=== PATIENT | male | born 1980 | race Caucasian/White ===

== ENCOUNTER 2024-01-28 13:49 | Observation (INO) | payer OTHER ==
[2024-01-28 15:59] LABS: Glucose,Whole Blood 134 mg/dL (70-110)
[2024-01-28 16:02] LABS: Basophils % (A) 0 %; Eosinophils # (A) 0.1 k/uL (0-0.7); Eosinophils % (A) 1 %; HCT 36.3 % (39.0-53.0); HGB 12.6 gm/dL (13.0-17.5); Lymphocytes # (A) 1.9 k/uL (1.0-4.8); Lymphocytes % (A) 16 %; MCH 29.2 pg (25.0-35.0); MCHC 34.6 g/dL (31.0-37.0); MCV 84.4 fL (80.0-100.0); Mean Platelet Volume 7.6; Monocytes # (A) 0.9 k/uL (0-1.0); Monocytes % (A) 7 %; Neutrophils # (A) 9.1 k/uL (1.3-7.7); Neutrophils % (A) 75 %; Platelet Count 277 k/uL (150-450); RBC 4.29 m/uL (4.30-5.90); RDW 14.8 % (11.5-15.5); WBC 12.2 k/uL (3.8-10.6)
[2024-01-28 16:19] LABS: ALT 30 U/L (4-49); AST 54 U/L (17-59); African American GFR (CKD) 36 (>60 ml/min/1.73 sqM); Albumin 5.2 g/dL (3.5-5.0); Alcohol <10 mg/dL; Alkaline Phosphatase 72 U/L (38-126); Anion Gap 13 mmol/L; Blood Urea Nitrogen 35 mg/dL (9-20); Calcium 10.5 mg/dL (8.4-10.2); Carbon Dioxide 23 mmol/L (22-30); Chloride 102 mmol/L (98-107); Glucose 100 mg/dL (74-99); Non-African American GFR(CKD) 31 (>60 ml/min/1.73 sqM); Potassium 4.5 mmol/L (3.5-5.1); Sodium 138 mmol/L (137-145); Total Bilirubin 0.6 mg/dL (0.2-1.3); Total Protein 8.8 g/dL (6.3-8.2)
[2024-01-28] MEDS: NALOXONE 0.4 MG/ML 1 ML VIAL IVP STA (17:08)
--- NOTE | 2024-01-28 17:41 | CT ---
EXAMINATION TYPE: CT brain cspine wo con CT DLP: 1930..5 mGycm, Automated exposure control for dose reduction was used. DATE OF EXAM: 01/28/2024 5:24 PM COMPARISON: None. CLINICAL INDICATION: Male, 43 years old with history of fall; Denies fall, has abrasions to knees and elbows. TECHNIQUE: Brain: Multiple axial CT images of the brain were obtained without IV contrast. Cspine: Axial CT images from the skull base to the inferior aspect of T2 we obtained without intraven ous contrast. Coronal and sagittal reformatted images were also reviewed. . FINDINGS: Brain: Extra-axial spaces: No abnormal extra-axial fluid collections. Ventricular system: Within normal limits Cerebral parenchyma: No acute intraparenchymal hemorrhage or mass effect. The cottrell-white junction is well differentiated. Cerebellum: Unremarkable. Mass effect: No evidence of midline shift. Intracranial vasculature: unremarkable Soft tissues: Normal. Calvarium/osseous structures: No depressed skull fracture. Paranasal sinuses and mastoid air cells: Clear. Visualized orbits: Orbital contents are intact. Cervical spine: Fracture: None. Osseous structures: Multilevel degenerative disc disease changes with endplate spurring and disc oste ophyte complex's. Vertebral alignment: Within normal limits. Spinal canal/Neural Foramina: No evidence of significant spinal canal narrowing. No evidence for sign ificant neural foraminal stenosis. Neck soft tissues: Prevertebral soft tissues are within normal limits. Other: The airway is patent. The lung apices are clear. IMPRESSION: 1. No acute intracranial process. 2. No evidence of cervical spine fracture. 3. Mild multilevel degenerative disc disease.
[2024-01-28] MEDS: SODIUM CHLORIDE 0.9% 2,000 ML IV ONE (18:20)
[2024-01-28] MEDS: SODIUM CHLORIDE 0.9% 1,000 ML IV SCH (20:09)
[2024-01-28 20:21] LABS: Glucose,Whole Blood 112 mg/dL (70-110)
[2024-01-28 20:48] LABS: Amphetamine Screen,Urine Detected (NotDetected); Barbiturate Screen,Urine Not Detected (NotDetected); Benzodiazepines Screen,Urine Detected (NotDetected); Cocaine Screen,Urine Detected (NotDetected); Methadone Screen, Urine Not Detected (NotDetected); Opiate Screen,Urine Not Detected (NotDetected); Oxycodone Screen, Urine Not Detected (NotDetected); Phencyclidine Screen,Urine Not Detected (NotDetected); Tricyclic Antidepressant,Urine Detected (NotDetected); Urn Cannabinoid Scrn Detected (NotDetected)
[2024-01-28] MEDS ORDERED: NALOXONE 0.4 MG/ML 1 ML VIAL IV PRN (21:11)
--- NOTE | 2024-01-28 21:13 | ED ---
General Adult HPI - General Chief complaint: Recheck/Abnormal Lab/Rx Stated complaint: syncope Time Seen by Provider: 01/28/24 15:09 Source: patient Mode of arrival: ambulatory Limitations: no limitations - History of Present Illness Initial comments: 43-year-old male presenting after a fall. Patient went into [facility] intake today. He is difficult to arouse. He does report that he took cocaine and methamphetamine before reporting there. EMS states that the patient did fall at the facility and hit his face. He is difficult to obtain much history from him at this time. Arousable to sternal rub. He does have abrasions to the face and extremities. - Related Data Home Medications Medication Instructions Recorded Confirmed Baclofen 5 mg PO DAILY 01/29/24 01/29/24 Buprenorphine-Nalox 8-2 mg Tab 1 tab SUBLINGUAL BID 01/29/24 01/29/24 [Suboxone 8-2 mg Tab] Naproxen [EC-Naprosyn] 500 mg PO BID PRN 01/29/24 01/29/24 Nicotine 14Mg/24Hr Patch [Habitrol 1 patch TRANSDERM DAILY 01/29/24 01/29/24 14Mg/24Hr Patch] Nicotine Polacrilex [Nicotine Gum] 2 mg BUCCAL Q2H PRN 01/29/24 01/29/24 Pregabalin [Lyrica] 200 mg PO DAILY 01/29/24 01/29/24 QUEtiapine FUMARATE [SEROquel] 300 mg PO HS 01/29/24 01/29/24 QUEtiapine [SEROquel] 100 mg PO DAILY 01/29/24 01/29/24 Venlafaxine HCl [Effexor XR] 75 mg PO DAILY 01/29/24 01/29/24 Allergies Allergy/AdvReac Type Severity Reaction Status Date / Time No Known Allergies Allergy Verified 01/29/24 13:00 Review of Systems ROS Statement: Those systems with pertinent positive or pertinent negative responses have been documented in the HPI. ROS Other: All systems not noted in ROS Statement are negative. Past Medical History Past Medical History: No Reported History History of Any Multi-Drug Resistant Organisms: Unobtainable Past Surgical History: No Surgical Hx Reported Past Psychological History: No Psychological Hx Reported Smoking Status: Unknown if ever smoked Past Alcohol Use History: Unable to Obtain Past Drug Use History: Unable to Obtain - Past Family History Mother Family Medical History: No Reported History General Exam Limitations: no limitations General appearance: appears intoxicated, obtunded Head exam: Present: normocephalic Expanded Head exam: Present: abrasion Eye exam: Present: normal appearance, PERRL, EOMI Neck exam: Present: normal inspection. Absent: meningismus Respiratory exam: Present: normal lung sounds bilaterally. Absent: respiratory distress, wheezes, rales, rhonchi, stridor Cardiovascular Exam: Present: regular rate, normal rhythm, normal heart sounds. Absent: systolic murmur, diastolic murmur, rubs, gallop, clicks Neurological exam: Present: altered Skin exam: Present: abrasion Course Vital Signs 01/28/24 01/28/24 01/28/24 14:14 16:00 17:00 Temperature 98 F 98 F Pulse Rate 98 77 75 Pulse Rate [ Pulse Oximetery ] Respiratory 18 12 12 Rate Blood Pressure 116/83 113/80 131/87 Blood Pressure [Right Arm] O2 Sat by Pulse 93 L 98 99 Oximetry 01/28/24 01/28/24 01/28/24 17:08 18:00 20:14 Temperature 97.6 F Pulse Rate 76 81 Pulse Rate [ Pulse Oximetery ] Respiratory 10 L 14 18 Rate Blood Pressure 134/87 142/98 Blood Pressure [Right Arm] O2 Sat by Pulse 96 97 Oximetry 01/29/24 01/29/24 01/29/24 00:20 04:52 07:00 Temperature 97.7 F 97.8 F Pulse Rate 82 88 Pulse Rate [ 75 Pulse Oximetery ] Respiratory 18 16 18 Rate Blood Pressure 134/89 128/97 Blood Pressure 136/96 [Right Arm] O2 Sat by Pulse 97 95 97 Oximetry Medical Decision Making - Medical Decision Making Was pt. sent in by a medical professional or institution (, PA, TUNNEL HEADING INSPECTOR, urgent care, hospital, or [facility]...) When possible be specific @ -No Did you speak to anyone other than the patient for history (EMS, parent, family, police, friend...)? What history was obtained from this source @ -No Did you review nursing and triage notes (agree or disagree)? Why? @ -I reviewed and agree with nursing and triage notes Were old charts reviewed (outside hosp., previous admission, EMS record, old EKG, old radiological studies, urgent care reports/EKG's, [facility] records)? Report findings @ -No old charts were reviewed Differential Diagnosis (chest pain, altered mental status, abdominal pain women, abdominal pain men, vaginal bleeding, weakness, fever, dyspnea, syncope, headache, dizziness, GI bleed, back pain, seizure, CVA, palpatations, mental health, musculoskeletal)? @ -MDM Differential Altered Mental Status: Hypoglycemia, DKA, hypercapnia, ETOH, overdose, CO poisoning, trauma, myxedema coma, HTN encephalopathy, infection, encephalitis, psychosis, intercranial hemorrhage, hepatic encephalopathy, meningitis, CVA this is not meant to be an all-inclusive list EKG interpreted by me (3pts min.). @ -Sinus rhythm ventricular rate 80. KS interval 162. QRS 94. QT 393. QTc 429. X-rays interpreted by me (1pt min.). @ -None done CT interpreted by me (1pt min.). @ -CT shows no acute intracranial process. No evidence for cervical spine fracture. Mild multilevel degenerative disc disease U/S interpreted by me (1pt. min.). @ -None done What testing was considered but not performed or refused? (CT, X-rays, U/S, labs)? Why? @ -None What meds were considered but not given or refused? Why? @ -None Did you discuss the management of the patient with other professionals (professionals i.e. , PA, TUNNEL HEADING INSPECTOR, lab, RT, psych nurse, social science research assistant, wicker molded candles, teacher, marine safety officer, patient case coordinator)? Give summary @ -I spoke with Dr. Duval who accepted admission Was smoking cessation discussed for >3mins.? @ -No Was critical care preformed (if so, how long)? @ -No Were there social determinants of health that impacted care today? How? (Homelessness, low income, unemployed, alcoholism, drug addiction, transportation, low edu. Level, literacy, decrease access to med. care, correction, rehab)? @ -Polysubstance use Was there de-escalation of care discussed even if they declined (Discuss DNR or withdrawal of care, Hospice)? DNR status @ -No What co-morbidities impacted this encounter? (DM, HTN, Smoking, COPD, CAD, Cancer, CVA, ARF, Chemo, Hep., AIDS, mental health diagnosis, sleep apnea, morbid obesity)? @ -None Was patient admitted / discharged? Hospital course, mention meds given and route, prescriptions, significant lab abnormalities, going to OR and other pertinent info. @ -43-year-old male presenting after a fall. The patient is altered. Admits to using cocaine and methamphetamine prior to arrival. Was at intake at [facility] and brought here. Patient initially required sternal rub to arouse. He was placed on 3 L of oxygen via nasal cannula. Given Narcan 0.[address] of the brain and cervical spine. Creatinine 2.44 BUN 35, no previous values for comparison. Creatinine kinase 1358. Ammonia less than 9 alcohol level less than 10. He is positive for TCAs, amphetamines, methamphetamines, benzodiazepines, cocaine, and marijuana. Patient will be admitted for GOLDEN and rhabdomyolysis. He received 2 L normal saline fluid bolus and placed on maintenance rate of 150 mL/h. He is agreeable with this plan. I discussed this case with my attending Dr. Giraldo Undiagnosed new problem with uncertain prognosis? @ -No Drug Therapy requiring intensive monitoring for toxicity (Heparin, Nitro, In sulin, Cardizem)? @ -No Were any procedures done? @ -No Diagnosis/symptom? @ -Rhabdomyolysis, GOLDEN Acute, or Chronic, or Acute on Chronic? @ -Acute Uncomplicated (without systemic symptoms) or Complicated (systemic symptoms)? @ -Complicated Side effects of treatment? @ -No Exacerbation, Progression, or Severe Exacerbation? @ -No Poses a threat to life or bodily function? How? (Chest pain, USA, RI, pneumonia, PE, COPD, DKA, ARF, appy, cholecystitis, CVA, Diverticulitis, Homicidal, Suicidal, threat to staff... and all critical care pts) @ -Yes - Lab Data Result diagrams: 01/28/24 15:50 01/29/24 04:34 Lab Results 01/28/24 01/28/24 01/28/24 Range/Units 15:50 15:50 15:50 WBC 12.2 H (3.8-10.6) k/uL RBC 4.29 L (4.30-5.90) m/uL Hgb 12.6 L (13.0-17.5) gm/dL Hct 36.3 L (39.0-53.0) % MCV 84.4 (80.0-100.0) fL MCH 29.2 (25.0-35.0) pg MCHC 34.6 (31.0-37.0) g/dL RDW 14.8 (11.5-15.5) % Plt Count 277 (150-450) k/uL MPV 7.6 Neutrophils % 75 % Lymphocytes % 16 % Monocytes % 7 % Eosinophils % 1 % Basophils % 0 % Neutrophils # 9.1 H (1.3-7.7) k/uL Lymphocytes # 1.9 (1.0-4.8) k/uL Monocytes # 0.9 (0-1.0) k/uL Eosinophils # 0.1 (0-0.7) k/uL Basophils # 0.0 (0-0.2) k/uL Sodium 138 (137-145) mmol/L Potassium 4.5 (3.5-5.1) mmol/L Chloride 102 (98-107) mmol/L Carbon Dioxide 23 (22-30) mmol/L Anion Gap 13 mmol/L BUN 35 H (9-20) mg/dL Creatinine 2.44 H (0.66-1.25) mg/dL Est GFR (CKD-EPI)AfAm 36 (>60 ml/min/1.73 sqM) Est GFR (CKD-EPI)NonAf 31 (>60 ml/min/1.73 sqM) Glucose 100 H (74-99) mg/dL POC Glucose (mg/dL) (70-110) mg/dL POC Glu Mast Maker ID Calcium 10.5 H (8.4-10.2) mg/dL Magnesium (1.6-2.3) mg/dL Total Bilirubin 0.6 (0.2-1.3) mg/dL AST 54 (17-59) U/L ALT 30 (4-49) U/L Alkaline Phosphatase 72 (38-126) U/L Ammonia (<30) umol/L Creatine Kinase 1358 H* (55-170) U/L Total Protein 8.8 H (6.3-8.2) g/dL Albumin 5.2 H (3.5-5.0) g/dL Urine Opiates Screen (NotDetected) Ur Oxycodone Screen (NotDetected) Urine Methadone Screen (NotDetected) Ur Barbiturates Screen (NotDetected) U Tricyclic Antidepress (NotDetected) Ur Phencyclidine Scrn (NotDetected) Ur Amphetamines Screen (NotDetected) U Methamphetamines Scrn (NotDetected) U Benzodiazepines Scrn (NotDetected) Urine Cocaine Screen (NotDetected) U Marijuana (THC) Screen (NotDetected) Serum Alcohol <10 mg/dL 01/28/24 01/28/24 01/28/24 Range/Units 15:50 15:58 18:00 WBC (3.8-10.6) k/uL RBC (4.30-5.90) m/uL Hgb (13.0-17.5) gm/dL Hct (39.0-53.0) % MCV (80.0-100.0) fL MCH (25.0-35.0) pg MCHC (31.0-37.0) g/dL RDW (11.5-15.5) % Plt Count (150-450) k/uL MPV Neutrophils % % Lymphocytes % % Monocytes % % Eosinophils % % Basophils % % Neutrophils # (1.3-7.7) k/uL Lymphocytes # (1.0-4.8) k/uL Monocytes # (0-1.0) k/uL Eosinophils # (0-0.7) k/uL Basophils # (0-0.2) k/uL Sodium (137-145) mmol/L Potassium (3.5-5.1) mmol/L Chloride (98-107) mmol/L Carbon Dioxide (22-30) mmol/L Anion Gap mmol/L BUN (9-20) mg/dL Creatinine (0.66-1.25) mg/dL Est GFR (CKD-EPI)AfAm (>60 ml/min/1.73 sqM) Est GFR (CKD-EPI)NonAf (>60 ml/min/1.73 sqM) Glucose (74-99) mg/dL POC Glucose (mg/dL) 134 H (70-110) mg/dL POC Glu Mast Maker ID Fab Parisi Calcium (8.4-10.2) mg/dL Magnesium 2.2 (1.6-2.3) mg/dL Total Bilirubin (0.2-1.3) mg/dL AST (17-59) U/L ALT (4-49) U/L Alkaline Phosphatase (38-126) U/L Ammonia <9 (<30) umol/L Creatine Kinase (55-170) U/L Total Protein (6.3-8.2) g/dL Albumin (3.5-5.0) g/dL Urine Opiates Screen (NotDetected) Ur Oxycodone Screen (NotDetected) Urine Methadone Screen (NotDetected) Ur Barbiturates Screen (NotDetected) U Tricyclic Antidepress (NotDetected) Ur Phencyclidine Scrn (NotDetected) Ur Amphetamines Screen (NotDetected) U Methamphetamines Scrn (NotDetected) U Benzodiazepines Scrn (NotDetected) Urine Cocaine Screen (NotDetected) U Marijuana (THC) Screen (NotDetected) Serum Alcohol mg/dL 01/28/24 01/28/24 Range/Units 20:12 20:20 WBC (3.8-10.6) k/uL RBC (4.30-5.90) m/uL Hgb (13.0-17.5) gm/dL Hct (39.0-53.0) % MCV (80.0-100.0) fL MCH (25.0-35.0) pg MCHC (31.0-37.0) g/dL RDW (11.5-15.5) % Plt Count (150-450) k/uL MPV Neutrophils % % Lymphocytes % % Monocytes % % Eosinophils % % Basophils % % Neutrophils # (1.3-7.7) k/uL Lymphocytes # (1.0-4.8) k/uL Monocytes # (0-1.0) k/uL Eosinophils # (0-0.7) k/uL Basophils # (0-0.2) k/uL Sodium (137-145) mmol/L Potassium (3.5-5.1) mmol/L Chloride (98-107) mmol/L Carbon Dioxide (22-30) mmol/L Anion Gap mmol/L BUN (9-20) mg/dL Creatinine (0.66-1.25) mg/dL Est GFR (CKD-EPI)AfAm (>60 ml/min/1.73 sqM) Est GFR (CKD-EPI)NonAf (>60 ml/min/1.73 sqM) Glucose (74-99) mg/dL POC Glucose (mg/dL) 112 H (70-110) mg/dL POC Glu Mast Maker ID Calcium (8.4-10.2) mg/dL Magnesium (1.6-2.3) mg/dL Total Bilirubin (0.2-1.3) mg/dL AST (17-59) U/L ALT (4-49) U/L Alkaline Phosphatase (38-126) U/L Ammonia (<30) umol/L Creatine Kinase (55-170) U/L Total Protein (6.3-8.2) g/dL Albumin (3.5-5.0) g/dL Urine Opiates Screen Not Detected (NotDetected) Ur Oxycodone Screen Not Detected (NotDetected) Urine Methadone Screen Not Detected (NotDetected) Ur Barbiturates Screen Not Detected (NotDetected) U Tricyclic Antidepress Detected H (NotDetected) Ur Phencyclidine Scrn Not Detected (NotDetected) Ur Amphetamines Screen Detected H (NotDetected) U Methamphetamines Scrn Detected H (NotDetected) U Benzodiazepines Scrn Detected H (NotDetected) Urine Cocaine Screen Detected H (NotDetected) U Marijuana (THC) Screen Detected H (NotDetected) Serum Alcohol mg/dL Disposition Clinical Impression: Rhabdomyolysis, GOLDEN (acute kidney injury) Disposition: ADMITTED IP TO THIS HOSP Condition: Serious Time of Disposition: 21:12
[2024-01-28] MEDS: ACETAMINOPHEN TAB 500 MG TAB PO STA (21:21)
[2024-01-28] MEDS: NICOTINE 21MG/24HR PATCH TRANSDERM STA (21:21)
[2024-01-28] MEDS: BACITRACIN OINT 1 EACH PACKET TOPICAL ONE (22:28)
--- NOTE | 2024-01-29 00:29 | P.HPIM ---
History of Present Illness H&P Date: 01/28/24 Chief Complaint: fall, altered mental status 43-year-old male with polysubstance abuse Patient provides vague history claims that he has no significant past medical history. However he has long history of addiction and polysubstance abuse claims to be sober for a while however relapsed recently found himself doing different substances at the same time including cocaine and meth seems like he was trying to go from one place to another taking a bus when he fell down back wards and hit his face for which ambulance was notified and he was brought into the hospital for evaluation Otherwise no meaningful history is obtainable from this patient at this time He denies any nausea vomiting denies any hallucinations denies any abdominal pain or chest pain denies any trouble breathing denies any GI bleeding He admits to long history of polysubstance abuse and always trying to quit and relapses Is admitting to poor p.o. intake feeling dehydrated and having muscle cramps over the past 2 days denies any vomiting or GI bleeding review of systems Difficult to obtain patient unreliable however he denies any other concerns on exam Constitutional: No acute distress sleepy but arousable Eyes: Anicteric sclerae, moist conjunctiva, Pupils equal round reactive to light ENMT: NC/abrasions over the nose and forehead Oropharynx clear, no erythema, or exudates Neck: Supple, no masses, or JVD No carotid bruits No thyromegaly Lungs: Clear to auscultation Clear to percussion Normal respiratory effort, no accessory muscle use Cardiovascular: Heart regular in rate and rhythm, No murmurs, gallops, or rubs No peripheral edema Abdominal: Soft Nontender, no guarding, rebound or rigidity Abdomen moving with respiration Normoactive bowel sounds Extremities: No digital cyanosis No clubbing Pedal pulses intact and symmetrical Radial pulses intact and symmetrical No calf tenderness Psychiatric: Alert and oriented to person, only he knows that he is in the hospital but not sure which city or what hospital Neuro Muscles Strength 5/5 in all 4 extremities Sensation to light touch grossly present throughout Cranial nerves II-XII grossly intact Past Medical History Past Medical History: No Reported History History of Any Multi-Drug Resistant Organisms: Unobtainable Past Surgical History: No Surgical Hx Reported Past Psychological History: No Psychological Hx Reported Smoking Status: Unknown if ever smoked Past Alcohol Use History: Unable to Obtain Past Drug Use History: Unable to Obtain Medications and Allergies Allergies Allergy/AdvReac Type Severity Reaction Status Date / Time No Known Allergies Allergy Verified 01/28/24 14:20 Physical Exam Vitals: Vital Signs Temp Pulse Resp BP Pulse Ox 01/28/24 20:14 81 18 142/98 97 01/28/24 18:00 97.6 F 76 14 134/87 96 01/28/24 17:08 10 L 01/28/24 17:00 98 F 75 12 131/87 99 01/28/24 16:00 77 12 113/80 98 01/28/24 14:14 98 F 98 18 116/83 93 L Intake and Output 01/28/24 01/28/24 01/28/24 06:59 14:59 22:59 Other: Weight 81.647 kg Results CBC & Chem 7: 01/28/24 15:50 01/28/24 15:50 Labs: Abnormal Lab Results - Last 24 Hours (Table) 01/28/24 01/28/24 01/28/24 Range/Units 15:50 15:50 15:50 WBC 12.2 H (3.8-10.6) k/uL RBC 4.29 L (4.30-5.90) m/uL Hgb 12.6 L (13.0-17.5) gm/dL Hct 36.3 L (39.0-53.0) % Neutrophils # 9.1 H (1.3-7.7) k/uL BUN 35 H (9-20) mg/dL Creatinine 2.44 H (0.66-1.25) mg/dL Glucose 100 H (74-99) mg/dL POC Glucose (mg/dL) (70-110) mg/dL Calcium 10.5 H (8.4-10.2) mg/dL Creatine Kinase 1358 H* (55-170) U/L Total Protein 8.8 H (6.3-8.2) g/dL Albumin 5.2 H (3.5-5.0) g/dL U Tricyclic Antidepress (NotDetected) Ur Amphetamines Screen (NotDetected) U Methamphetamines Scrn (NotDetected) U Benzodiazepines Scrn (NotDetected) Urine Cocaine Screen (NotDetected) U Marijuana (THC) Screen (NotDetected) 01/28/24 01/28/24 01/28/24 Range/Units 15:58 20:12 20:20 WBC (3.8-10.6) k/uL RBC (4.30-5.90) m/uL Hgb (13.0-17.5) gm/dL Hct (39.0-53.0) % Neutrophils # (1.3-7.7) k/uL BUN (9-20) mg/dL Creatinine (0.66-1.25) mg/dL Glucose (74-99) mg/dL POC Glucose (mg/dL) 134 H 112 H (70-110) mg/dL Calcium (8.4-10.2) mg/dL Creatine Kinase (55-170) U/L Total Protein (6.3-8.2) g/dL Albumin (3.5-5.0) g/dL U Tricyclic Antidepress Detected H (NotDetected) Ur Amphetamines Screen Detected H (NotDetected) U Methamphetamines Scrn Detected H (NotDetected) U Benzodiazepines Scrn Detected H (NotDetected) Urine Cocaine Screen Detected H (NotDetected) U Marijuana (THC) Screen Detected H (NotDetected) Assessment and Plan Assessment: 43-year-old male with polysubstance abuse was brought into the hospital evaluation after passing out and falling hitting his face I discussed case with ED doctor and accepted the admission for acute kidney injury secondary to acute rhabdomyolysis possibly secondary to dehydration and polysubstance abuse with anticipated length of stay more than 2 midnights Acute metabolic encephalopathy secondary to polysubstance abuse Fall precautions CT of the head and neck no acute pathology Acute kidney injury Acute rhabdomyolysis Renal function showing elevated BUN of 35 and creatinine of 2.4 unknown baseline Potassium unremarkable 4.5 sodium 138 unremarkable CK elevated 1358 Polysubstance abuse urine drug screen positive for tricyclic methamphetamine amphetamine benzo cocaine and marijuana Serum alcohol level negative Ammonia less than 9 unremarkable Aggressive IV fluid hydration normal saline status post 2 L normal saline continue with 150 cc/h Monitor urine output Follow-up creatinine kinase and renal function Avoid nephrotoxic meds Hypercalcemia Could be secondary to dehydration Calcium elevated at 10.5 Continue with natriuresis with normal saline at 150 cc/h Reassess in the morning if continues to be elevated consider further workup Anemia hemoglobin 12.6 Unknown baseline Patient denies bleeding Continue close monitoring Full code DVT prophylaxis heparin subcu 3 times daily 5000 units
[2024-01-29] MEDS: MORPHINE SULFATE 4 MG/ML SYRINGE IVP PRN (01:29)
[2024-01-29] MEDS: LORazepam 1 MG TAB PO STA (01:59)
[2024-01-29] MEDS: ACETAMINOPHEN TAB 325 MG TAB PO PRN (04:05)
[2024-01-29] MEDS: NALOXONE 0.4 MG/ML 1 ML VIAL IVP STA (04:44)
[2024-01-29] MEDS: HYDROmorphone 0.5 MG/0.5 ML SYRINGE IVP STA (04:51)
[2024-01-29] MEDS: HEPARIN SODIUM,PORCINE 5,000 UNIT/ML 1 ML VIAL SQ SCH (10:05)
[2024-01-29 11:04] LABS: Blood Urea Nitrogen 23.1 mg/dL (9.0-27.0); Calcium 9.1 mg/dL (8.7-10.3); Carbon Dioxide 20.7 mmol/L (21.6-31.8); Chloride 107 mmol/L (96-109); Glucose 100 mg/dL (70-110); Potassium 4.2 mmol/L (3.5-5.5); Sodium 138 mmol/L (135-145)
[2024-01-29 11:55] LABS: Creatine Kinase 2388 U/L (35-257)
[2024-01-29] MEDS: PREGABALIN 100 MG CAP PO SCH (15:43)
--- NOTE | 2024-01-29 16:23 | P.PN ---
Subjective Progress Note Date: 01/29/24 Subjective: Patient is seen and examined at the bedside. No acute events overnight. Patient is complaining generalized body aches and pains. All Systems reviewed and pertinent positives and negatives noted in HPI, all other symptoms are negative Objective: Vital signs reviewed. General: non toxic, no distress, appears at stated age, normal weight Derm: Mild bruises and abrasions on the head and nose and on bilateral knees, no active bleeding Head: atraumatic, normocephalic, symmetric Eyes: EOMI, no lid lag, anicteric sclera, pupils equal round reactive to light Neck: No cervical lymphadenopathy, trachea midline, supple Mouth: no lip lesion, mucus membranes moist Cardiovascular: S1S2 reg, no murmur, positive dorsalis pedis pulse bilateral, no edema Lungs: CTA bilateral, no rhonchi, no rales, no accessory muscle use Abdominal: soft, nontender to palpation, no guarding Ext: muscle strength 5 out of 5 in all 4 extremities grossly, no gross muscle atrophy, no contractures, Neuro: CN II-XI grossly intact, no gross focal neuro deficits Psych: Alert, oriented, appropriate affect Data reviewed today: Labs: Creatinine kinase 2388, sodium 138, potassium 4.2, chloride 105, bicarb 20.7, BUN 23, creatinine 1.1 Assessment and Plan: 43-year-old male with polysubstance abuse was admitted to the hospital for evaluation of fall due to drug overdose. Unknown downtime. Patient is admitted for acute kidney injury secondary to acute rhabdomyolysis possibly secondary to dehydration and probably substance abuse. #Acute metabolic encephalopathy secondary to polysubstance abuse, improving Fall precautions Seizure precautions CT of the head and neck shows no acute pathology #Acute kidney injury secondary to rhabdomyolysis Creatinine kinase 2388, BUN 23, creatinine 1.1 Creatinine kinase trending up; continue to trend creatinine kinase Creatinine level improving IV normal saline at 150 cc/h Monitor urine output Monitor BMP Avoid nephrotoxins Continue cardiac monitoring Repeat CK, if still uptrending, will increase rate of normal saline #Hypercalcemia, resolved Calcium 9.1 #Normocytic anemia hemoglobin 12.6, MCV 84 Unknown baseline Patient denies bleeding Continue close monitoring #Pain control secondary to fall and withdrawal symptoms Acetaminophen 650mL p.o. every 6 hours as needed, [place] 53 25 1 each p.o. every 6 hours as needed -Continue home Lyrica 200 mg daily Depression/mood disorder -Continue Seroquel 100 daily, 300 nightly, venlafaxine 75 daily F: IV normal saline 150 cc/h E: Replete as needed N: Regular diet A: Ambulatory DVT ppx: Heparin 5000 units SQ 8 hours Code Status: Full code Anticipated discharge place: Pending clinical course Anticipated discharge date: Pending clinical course I have seen and evaluated the patient today. Discussed with the resident and agree with the residents finding and plan as documented in the resident's note. Changes highlighted in blue font. Objective - Vital Signs Vital signs: Vital Signs Temp 97.9 F 01/29/24 15:00 Pulse 73 01/29/24 15:00 Resp 19 01/29/24 15:00 BP 126/84 01/29/24 15:00 Pulse Ox 97 01/29/24 15:00 FiO2 Intake & Output 01/28/24 01/29/24 01/29/24 18:59 06:59 18:59 Intake Total 118 Balance 118 Weight 81.647 kg 81.647 kg Intake: Oral 118 Other: # Voids 2 - Labs CBC & Chem 7: 01/28/24 15:50 01/29/24 04:34 Labs: Abnormal Lab Results - Last 24 Hours (Table) 01/28/24 01/28/24 01/28/24 Range/Units 15:50 15:50 20:12 Carbon Dioxide (21.6-31.8) mmol/L BUN 35 H (9-20) mg/dL Creatinine 2.44 H (0.66-1.25) mg/dL BUN/Creatinine Ratio (12.00-20.00) Ratio Glucose 100 H (74-99) mg/dL POC Glucose (mg/dL) (70-110) mg/dL Calcium 10.5 H (8.4-10.2) mg/dL Creatine Kinase 1358 H* (55-170) U/L Total Protein 8.8 H (6.3-8.2) g/dL Albumin 5.2 H (3.5-5.0) g/dL U Tricyclic Antidepress Detected H (NotDetected) Ur Amphetamines Screen Detected H (NotDetected) U Methamphetamines Scrn Detected H (NotDetected) U Benzodiazepines Scrn Detected H (NotDetected) Urine Cocaine Screen Detected H (NotDetected) U Marijuana (THC) Screen Detected H (NotDetected) 01/28/24 01/29/24 Range/Units 20:20 04:34 Carbon Dioxide 20.7 L (21.6-31.8) mmol/L BUN (9-20) mg/dL Creatinine (0.66-1.25) mg/dL BUN/Creatinine Ratio 21.00 H (12.00-20.00) Ratio Glucose (74-99) mg/dL POC Glucose (mg/dL) 112 H (70-110) mg/dL Calcium (8.4-10.2) mg/dL Creatine Kinase 2388 A* (55-170) U/L Total Protein (6.3-8.2) g/dL Albumin (3.5-5.0) g/dL U Tricyclic Antidepress (NotDetected) Ur Amphetamines Screen (NotDetected) U Methamphetamines Scrn (NotDetected) U Benzodiazepines Scrn (NotDetected) Urine Cocaine Screen (NotDetected) U Marijuana (THC) Screen (NotDetected)
[2024-01-29] MEDS: QUEtiapine 100 MG TAB PO SCH (20:29)
[2024-01-29] MEDS: HYDROcodone/APAP 5-325MG 1 EACH TAB PO PRN (20:29)
[2024-01-30 02:54] VITALS: RESP 18
[2024-01-30 03:43] LABS: Basophils % (A) 1 %; Eosinophils # (A) 0.1 k/uL (0-0.7); Eosinophils % (A) 3 %; HCT 33.4 % (39.0-53.0); HGB 11.2 gm/dL (13.0-17.5); Lymphocytes # (A) 1.2 k/uL (1.0-4.8); Lymphocytes % (A) 28 %; MCH 29.5 pg (25.0-35.0); MCHC 33.4 g/dL (31.0-37.0); MCV 88.4 fL (80.0-100.0); Mean Platelet Volume 7.2; Monocytes # (A) 0.3 k/uL (0-1.0); Monocytes % (A) 7 %; Neutrophils # (A) 2.6 k/uL (1.3-7.7); Neutrophils % (A) 60 %; Platelet Count 193 k/uL (150-450); RBC 3.78 m/uL (4.30-5.90); RDW 14.8 % (11.5-15.5); WBC 4.3 k/uL (3.8-10.6)
[2024-01-30 04:48] LABS: African American GFR (CKD) >90 (>60 ml/min/1.73 sqM); Anion Gap 7 mmol/L; Blood Urea Nitrogen 16 mg/dL (9-20); Calcium 8.6 mg/dL (8.4-10.2); Carbon Dioxide 22 mmol/L (22-30); Chloride 113 mmol/L (98-107); Glucose 90 mg/dL (74-99); Non-African American GFR(CKD) >90 (>60 ml/min/1.73 sqM); Sodium 142 mmol/L (137-145)
[2024-01-30 08:03] VITALS: BP 119/83; PULSE 79; TEMP 98.1
[2024-01-30] MEDS: VENLAFAXINE HCL ER 75 MG CAP PO SCH (08:06)
[2024-01-30] MEDS: QUEtiapine 100 MG TAB PO SCH (08:06)
--- NOTE | 2024-01-30 12:54 | P.DS ---
Providers Date of admission: 01/28/24 22:05 Expected date of discharge: 01/30/24 Attending physician: Sharon Underwood MD Primary care physician: Physician Nonstaff Hospital Course: Discharge Diagnosis: #Acute metabolic encephalopathy secondary to polysubstance abuse #Acute kidney injury # Acute rhabdomyolysis likely from cocaine use #Hypercalcemia #Normocytic anemia #Pain control secondary to fall and withdrawal symptoms Hospital Course: 43-year-old male with polysubstance abuse was admitted to the hospital for evaluation of fall due to drug overdose. On initial presentation, vitals stable. WBC 12.2, hemoglobin 12.6, creatinine 2.44, CK up trended all the way to 2388, urine positive for TCA, amphetamine, methamphetamine, benzo, cocaine, marijuana. Head CT did not show any acute process. EKG showed normal sinus rhythm. . Patient is admitted for acute kidney injury secondary to acute rhabdomyolysis possibly secondary to dehydration and probably substance abuse. Patient was started on IV fluids. Renal function improved. CK down trended. Patient being discharged with follow-up with [facility] as well as PCP Patient seen and examined at bedside. Vital signs reviewed and stable. General: Nontoxic, no distress, appears at stated age Derm: Warm, dry, abrasions on forehead and bridge of nose, bilateral knees Head: Atraumatic, normocephalic, symmetric Eyes: EOMI, no lid lag, anicteric sclera Mouth: No lip lesion, mucus membranes moist Cardiovascular: S1S2 reg, no murmur Lungs: CTA bilateral, no rhonchi, no rales, no accessory muscle use Abdominal: Soft, nontender to palpation, no guarding, no appreciable organomegaly Ext: No gross muscle atrophy, no edema, no contractures Neuro: CN II-XI grossly intact, no focal neuro deficits Psych: Alert, oriented, appropriate affect A total of 33 minutes of time were spent preparing this complex discharge summary. Patient was discharged on 01/30/2024 at 1027. Patient Condition at Discharge: Stable Plan - Discharge Summary Discharge Rx Participant: Yes New Discharge Prescriptions: Continue Venlafaxine HCl [Effexor XR] 75 mg PO DAILY Nicotine Polacrilex [Nicotine Gum] 2 mg BUCCAL Q2H PRN PRN Reason: Nicotine Cravings Nicotine 14Mg/24Hr Patch [Habitrol] 1 patch TRANSDERM DAILY QUEtiapine [SEROquel] 100 mg PO DAILY QUEtiapine FUMARATE [SEROquel] 300 mg PO HS Baclofen 5 mg PO DAILY Naproxen [EC-Naprosyn] 500 mg PO BID PRN PRN Reason: Pain Pregabalin [Lyrica] 200 mg PO DAILY Buprenorphine-Nalox 8-2 mg Tab [Suboxone 8-2 mg Tab] 1 tab SUBLINGUAL BID Discharge Medication List Baclofen 5 mg PO DAILY 01/29/24 [History] Buprenorphine-Nalox 8-2 mg Tab [Suboxone 8-2 mg Tab] 1 tab SUBLINGUAL BID 01/29/24 [History] Naproxen [EC-Naprosyn] 500 mg PO BID PRN 01/29/24 [History] Nicotine 14Mg/24Hr Patch [Habitrol] 1 patch TRANSDERM DAILY 01/29/24 [History] Nicotine Polacrilex [Nicotine Gum] 2 mg BUCCAL Q2H PRN 01/29/24 [History] Pregabalin [Lyrica] 200 mg PO DAILY 01/29/24 [History] QUEtiapine FUMARATE [SEROquel] 300 mg PO HS 01/29/24 [History] QUEtiapine [SEROquel] 100 mg PO DAILY 01/29/24 [History] Venlafaxine HCl [Effexor XR] 75 mg PO DAILY 01/29/24 [History] Follow up Appointment(s)/Referral(s): Gutierrez Menendez MD [REFERRING] - 1 Week Nonstaff,Physician [Primary Care Provider] - 1-2 days Patient Instructions/Handouts: Seizure/Epilepsy Discharge Instructions & Follow-Up, Acute Kidney Injury (DC), Rhabdomyolysis (DC), Polysubstance Abuse (ED) Activity/Diet/Wound Care/Special Instructions: Please see PCP at [facility] Address: [address] [place] [phone] Call to make an appointment. Also go to [place] tomorrow. Discharge Disposition: HOME SELF-CARE
== END 2024-01-30 11:21 | disposition home or self-care (01) ==
LOC: EC 13:49 → 6NMEDSUR 22:05
PROVIDERS: ADMIT Internal Medicine; ATTEND Internal Medicine
DX: G92.8 Other toxic encephalopathy (principal); F19.10 Other psychoactive substance abuse, uncomplicated; N17.9 Acute kidney failure, unspecified; M62.82 Rhabdomyolysis; E83.52 Hypercalcemia; D64.9 Anemia, unspecified; F32.A Depression, unspecified; S00.81XA Abrasion of other part of head, initial encounter; S00.31XA Abrasion of nose, initial encounter; S80.212A Abrasion, left knee, initial encounter; S80.211A Abrasion, right knee, initial encounter; W19.XXXA Unspecified fall, initial encounter; Z79.899 Other long term (current) drug therapy
CPT/HCPCS: 36415; 70450; 72125; 80048; 80053; 80306; 80320; 82140; 82550; 83735; 85025; 93005; 96361; 96374; 96375; 96376; 99285